=== PATIENT | male | born 1935 | race Caucasian/White ===

== ENCOUNTER 2016-08-22 15:11 | Inpatient (IN) | payer MEDICARE, OTHER ==
[~2016-08-22] VITALS: Ht 175.3 cm; Wt 87.2 kg
[~2016-08-22 15:11] MED LIST: ALENDRONATE SOD70 MG PO; ANORO ELLIPTA 62.1 - IH; ANTIVERT-DPS25 MG PO; ASA CHILDREN'S81 MG PO; ASPIR 8181 MG PO; ATROVENT SOLN.2.5 ML IH; BACTRIM DS DPS1 TAB PO; BENTYL-DPS10 MG PO; BREO ELLIP1 PUFF/DOS IH; CALCIUM 600 +1 EA14 PO; CALTRATE-600 D600 MG PO; CALTRATE-600 W600 MG PO; COLACE-DPS100 MG PO; DELTASONE DPS10 MG PO; DELTASONE DPS20 MG PO; DOC-Q-LACE100 MG PO; DOCUSATE SODIU100 MG PO; DULCOLAX-DPS10 MG PR; FLOMAX DPS0.4 MG PO; LEVAQUIN DPS750 MG PO; LEVOFLOXACIN500 MG PO; LIPITOR DPS20 MG PO; LOPRESSOR DPS50 MG PO; LOVENOX DP40 MG/0.4 SQ; MAALOX DPS30 ML PO; MAPAP PM (TYLEN1 TAB PO; MIRALAX PACKET17 GM PO; MUCINEX600 MG PO; NATURAL BALANCE15 M1 OU; NITROSTAT0.4 MG SL; PEPCID DPS20 MG PO; PROTONIX40 MG PO; PULMICORT0.5 MG/21 IH; SLO-BID DPS300 MG PO; SURFAK DPS240 MG PO; THEO-24300 MG PO; THERAPEUTIC MUL1 TAB PO; TYLENOL DPS325 MG PO; VITAMIN D35000 UNIT PO; VITAMIN D50000 UNIT PO; XANAX DPS0.25 MG PO; XANAX DPS0.5 MG PO; XOPENEX CO1.25 MG/0. IH; XOPENEX1.25 MG/3 IH; ZITHROMAX250 MG PO; ZOLOFT DPS50 MG PO; ZYLOPRIM-DPS300 MG PO
--- NOTE | 2016-08-27 10:46 | HP ---
ADMIT: 08/22/2016 RM/LOC: 409 [facility] MR#: [id number] [address] [address] [address] VINCENT [address] [place] [address] History and Physical SEX: M AGE: 81 : 1935 DATE OF SERVICE: CHIEF COMPLAINT: Shortness of breath and palpitations. HISTORY OF PRESENT ILLNESS: This is an 81-year-old male, patient of Dr. 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 The patient was recently admitted July 17 through the at [facility] for sepsis due to right lower lobe pneumonia. He was in the ICU on pressors for a day. At that time, he was treated with Zosyn and azithromycin. His sputum cultures returned normal antony. He was discharged on the after recovering well and was sent to the [facility]. He was recently discharged from the long-term 2 days ago. According to the patient, today, he had 2 healthcare workers, who came out to his house to check on him and found him to be tachycardic and he was also complaining of shortness of breath. At that time, he states that he was not complaining of palpitations and never felt his heart racing today. He was then sent to the ER because of this physical findings and a chest x-ray revealed a right lower lobe pneumonia. There was some concern for a PE and so a CTA was done that was negative for pulmonary embolism, but then revealed bilateral lower lobe infiltrates. He was saturating normally on 2 L of oxygen and he normally wears 3 L at home chronically. His white count came back normal, but his lactic acid was elevated to 2.8. He was given a 1 L normal saline bolus and was started on Levaquin. His EKG showed sinus tachycardia with a rate of 116. The patient does admit that he has been very weak and short of breath since his last admission. He did have a poor appetite and some weight loss when he was admitted back in July, but states that his appetite has been great lately. He denies any upper respiratory infection symptoms, but he does complain of a cough that is occasionally productive of yellow phlegm. He has not noticed any blood in his sputum. He denies any abdominal pain, nausea, or vomiting. He does state that he has had a few loose stools in the last several days. Of note, the emergency room also checked a theophylline level since he takes theophylline regularly and noted that it was elevated to 21. PAST MEDICAL HISTORY: 1. End-stage COPD with chronic hypoxic respiratory failure. He is on 3 L of oxygen at baseline. 2. Coronary artery disease. Last had an echocardiogram in July of 2016 that showed an ejection fraction of 65%. 3. Hypertension. 4. Hyperlipidemia. 5. Multifocal atrial tachycardia. 6. History of prostate cancer. 7. BPH with urinary retention. 8. Anxiety. MEDICATIONS: ADMIT: 08/22/2016 RM/LOC: 409 [facility] MR#: [id number] [address] [place] [id number] [address]INCENT [address] [place] [address] History and Physical SEX: M AGE: 81 : 1935 1. Alprazolam 0.5 mg every 8 hours as needed. 2. Aspirin 81 mg daily. 3. Anoro Ellipta 62.5/25 mcg one puff every morning. 4. Atrovent 17 mcg one puff 4 times daily. 5. Caltrate plus vitamin D twice daily. 6. Docusate sodium 100 mg b.i.d. as needed. 7. Atorvastatin 20 mg at bedtime. 8. Mucinex ER 600 mg twice daily. 9. Natural balance eyedrops daily in both eyes. 10.Pantoprazole 40 mg twice daily. 11.Prednisone 10 mg daily. 12.Theophylline ER 300 mg daily. 13.Multivitamin daily. 14.Acetaminophen 500 mg one to two tabs every 4 hours as needed. 15.Vitamin D 50,000 units every Thursday. 16.Xopenex 1.25 mg/0.5 mL, one vial four times daily as needed. 17.Tamsulosin 0.4 mg at bedtime. 18.Donepezil 10 mg at bedtime. 19.Budesonide 0.5 mg/2 mL, one vial twice daily. ALLERGIES: DARVOCET. SOCIAL HISTORY: He does have a [id number] history of smoking. He quit about 10 years ago. He also has a history of alcohol use, but has not drank any alcohol for the last 10 years. He denies any illegal drugs. Again, he was living at home with his for the last 2 days after being discharged from the [facility] for rehab. FAMILY HISTORY: Noncontributory. REVIEW OF SYSTEMS: A 10-point review of systems was reviewed and negative other than that stated above in the HPI. PHYSICAL EXAMINATION: VITAL SIGNS: Blood pressure 114/69, pulse 93, respirations 20, temp 96.9, saturating 99% on 2 L. GENERAL: He is alert and oriented to person and place. He is unable to give me the date, but knows that it is year 2016. HEART: Tachycardic, but regular rhythm. LUNGS: Diminished throughout. ABDOMEN: Soft, nontender, nondistended with positive bowel sounds. EXTREMITIES: No edema. LABORATORY DATA AND IMAGING: Sodium 139, potassium 4.7, creatinine 1.3, glucose 194. White count 7.8, hemoglobin 11.9, platelets 164. Cardiac enzymes were negative. Procalcitonin was negative. Lactic acid 2.8, theophylline level was 21. Chest x-ray showed severe COPD and a right lower lobe infiltrate. CTA of the chest was negative for PE, but showed bilateral lower lobe infiltrates. ADMIT: 08/22/2016 RM/LOC: 409 [facility] MR#: [id number] [address] [address] [address] [place] [address] History and Physical SEX: M AGE: 81 : 1935 ASSESSMENT AND PLAN: 1. Bilateral lower lobe pneumonia. We started him on Levaquin and Zosyn. We will also give him Xopenex and Atrovent q.i.d. scheduled. I ordered a pulmonary toilet as well as IV Solu-Medrol. I ordered a respiratory viral panel. 2. End-stage chronic obstructive pulmonary disease with acute exacerbation. We would like Pulmonology to see him due to his severe chronic obstructive pulmonary disease and see if there is anything else that we could be doing for him as he is here in the hospital. 3. Elevated theophylline level. We are going to plan to hold his theophylline tonight and we will repeat a level in the morning. 4. Weakness. PT/OT will see him. He will likely need to go to rehab again after being discharged from the hospital. 5. Multifocal atrial tachycardia. 6. History of coronary artery disease. 7. Hypertension. 8. Hyperlipidemia. 9. Benign prostatic hyperplasia. 10.Anxiety. Nadine Olivier DO Resident / Dangelo Soto MD / modl JOB #: [id number] CC: Dangelo Soto, Attending Physician Dangelo Soto, Family Physician
[2016-08-28] MEDS ORDERED: PROTONIX40 MG PO (13:27)
[2016-08-28] MEDS ORDERED: ACETAMINOPHEN325 MG PO (13:28)
[2016-08-28] MEDS ORDERED: ARICEPT DPS5 MG PO (13:29)
[2016-08-28] MEDS ORDERED: FLOMAX DPS0.4 MG PO (13:29)
[2016-08-28] MEDS ORDERED: SURFAK DPS240 MG PO (13:30)
[2016-08-28] MEDS ORDERED: PHOS NAK PO (13:30)
[2016-08-28] MEDS ORDERED: MAALOX DPS30 ML PO (13:30)
--- NOTE | 2016-08-28 21:02 | DS ---
ADMIT: 08/22/2016 RM/LOC: 409 [facility] MR#: [id number] [address] [address] [address] [place] [address] Discharge Summary SEX: M AGE: 81 : 1935 ADMISSION DATE: 08/22/2016 DISCHARGE DATE: 08/27/2016 FINAL DIAGNOSES: 1. Bilateral lower lobe pneumonia. 2. Chronic obstructive pulmonary disease with chronic respiratory failure. 3. Chronic debilitation. 4. Chronic hypertension. 5. Coronary artery disease. 6. Hyperlipidemia. 7. History of prostate cancer. 8. Benign prostatic hypertrophy with chronic urinary retention. 9. Chronic anxiety. HOSPITAL COURSE: This gentleman was admitted on 08/22/2016 with increasing shortness of breath and weakness. He had only been home for two days after leaving a rehabilitation facility. Prior to that, he was in the hospital in ICU for pneumonia. In any case, on admission, he was short of breath. X-ray showed probable basilar pneumonia on the right side. He had a CT scan to rule out pulmonary emboli and that actually showed bilateral lower lobe pneumonia and no emboli. He has severe COPD findings. He was admitted, started on IV Solu-Medrol, Zosyn, and Levaquin. Over the course of the next several days, he had gradual improvement. He was weak and initially required assistance. Over the last 48 hours, he has been able to get up and complete most of his own cares, but he uses his walker for balance. He is stable today with no new complaints. He is on his baseline oxygen of 3 L per nasal cannula. The patient's x-ray has cleared for the most part. We did not repeat a CT scan. He will be dismissed home and have Home Health Care and then follow up soon with his own physician. Patient's primary doctor is Dr. Franky Steele. He was admitted by [facility] for hospital care for this stay. On dismissal, medications are: 1. Aricept 10 mg at bedtime. 2. Aspirin 81 mg daily. 3. Caltrate D 600 mg b.i.d. 4. Flomax 0.4 mg at bedtime. 5. Levaquin 500 mg p.o. daily through 08/28/2016. 6. Lipitor 20 mg at bedtime. 7. Mucinex 600 mg b.i.d. 8. Protonix 40 mg b.i.d. 9. Theophylline 300 mg daily. 10.Therapeutic multivitamin daily. 11.Vitamin D 50,000 units once a week. 12.Anoro inhaler one inhalation daily. 13.He has a tapering dose of prednisone. On 08/26, he will have 40 mg, on ADMIT: 08/22/2016 RM/LOC: 409 [facility] MR#: [id number] [address] [address] [address] [place] [address] Discharge Summary SEX: M AGE: 81 : 1935 08/27 he will have 40 mg, on 08/28 and 08/29, he will take 30 mg, on 08/30 and 08/31, he will take 20 mg, on 09/01 and 09/02, he will take 10 mg, on 09/03 and 09/04, he will take 5 mg daily, and then stop. 14.He also uses Pulmicort via nebulizer b.i.d. 15.Atrovent nebulized q.i.d. along with Xopenex nebulized q.i.d. 16.He also has alprazolam 0.5 mg q.8 hours p.r.n. anxiety. 17.Tylenol 500 mg take one or two tabs every 6 hours p.r.n. pain. 18.He can use Maalox 30 mL p.r.n. indigestion. He will continue his 02 at 3 L per nasal cannula. He did have a trend ox here overnight, which showed he required that to continue. He will follow up with Dr. Steele as planned. Zara Ramon MD/ josh JOB #: [id number] CC: Dangelo Soto MD, Attending Physician Dangelo Soto MD, Family Physician
--- NOTE | 2016-08-30 08:11 | ER ---
ADMIT: 08/22/2016 RM/LOC: [facility] MR#: [id number] [address] [address] [address] [place] [address] Emergency Room Report SEX: M AGE: 81 : 1935 DATE: 08/22/2016 ADDENDUM: CHIEF COMPLAINT: Rapid heart rate and shortness of breath. HISTORY OF PRESENT ILLNESS: This is an 81-year-old, who was recently admitted in the hospital what sounds like for COPD and sepsis pneumonia. He was discharged and went to [facility] for rehab. He just went home 2 days ago. Today, he was just at home, he felt like his heart was palpating, felt more short of breath, so brought him into the emergency room. PAST MEDICAL HISTORY: End-stage COPD, hypertension, hyperlipidemia, coronary artery disease, multifocal atrial tachycardia, prostate cancer, BPH with urinary retention, and anxiety. MEDICATIONS: Please see nurse's note. ALLERGIES: NO KNOWN ALLERGIES. SOCIAL HISTORY: Denies any tobacco use or alcohol. FAMILY HISTORY: Noncontributory. Please see T-sheet for physical exam and review of systems. COURSE IN THE EMERGENCY ROOM: CBC, BMP, troponin, CK, CK-MB, theophylline level, TSH, chest x-ray, and EKG were done. Overall findings, chest x-ray was unclear if there is a right-sided infiltrate. CTA of his chest showed bilateral infiltrates. LABORATORY DATA: CBC was normal except for hemoglobin of 11.9. CMP normal ADMIT: 08/22/2016 RM/LOC: [facility] MR#: [id number] [address] [address] [address] [place] [address] Emergency Room Report SEX: M AGE: 81 : 1935 except for glucose of 194, GFR is 51, relative index is elevated at 6.1. Theophylline was 21.5, otherwise CMP and TSH were normal. EKG showed sinus tach with some PACs over-read by Dr. Barros. After labs and CTA were obtained, blood cultures x2, lactic acid and procalcitonin have been ordered. Levaquin 750 mg IV was ordered. I did call Dr. Soto at 1745 hours. He will admit the patient. CLINICAL IMPRESSION: 1. Bilateral pneumonia. 2. Chronic obstructive pulmonary disease. DISPOSITION: Stable at admit. DARREN Lan / Wild Barros MD / modl JOB #: [id number] CC: Wild Barros MD, Attending Physician UNKNOWN, Family Physician
--- NOTE | 2016-09-12 08:44 | CO ---
ADMIT: 08/22/2016 RM/LOC: 409 [facility] MR#: [id number] 26[address] [facility] [address] [place], [place] [address] MAL DOMINGUEZ [address] [place] [address] Consultation SEX: M AGE: 81 : 1935 DATE OF CONSULTATION: 08/23/2016 ATTENDING PHYSICIAN: Dangelo Soto CONSULTING PHYSICIAN: Nghia Myers MD REASON FOR CONSULTATION: Hypoxemia, pneumonia, chronic obstructive pulmonary disease exacerbation. HISTORY OF PRESENT ILLNESS: Mr. Dominguez is a pleasant 81-year-old gentleman, who has a history of COPD, who was recently admitted with an influenza according to the patient and pneumonia in the right lower lobe, 07/17 through 07/21. He was in the ICU and on pressor treatment at that time. He has developed increasing cough, wheezing, and shortness of breath, and increasing hypoxemia. Yesterday, he was found to have tachycardia and dyspnea and was sent to the emergency room. Subsequent CT angiogram of the chest was negative for pulmonary embolism, bilateral interstitial lower lobe infiltrates. Procalcitonin level is less than 0.05. Basic metabolic panel showed a normal kidney function. White blood cell count was 7000, hemoglobin 10.7, today. Lactic acid was 2.8 on admission. Blood cultures are pending. Chest x-ray performed today has mild improvement in the lower lobes. PAST MEDICAL HISTORY: Reviewed, includes the followin. End-stage COPD. 2. Chronic hypoxemia. 3. Coronary artery disease. 4. Hypertension. 5. Hyperlipidemia. 6. Prostate cancer, by history. 7. BPH. 8. Anxiety. MEDICATIONS: From home were: 1. Xanax. 2. Anoro Ellipta. 3. Caltrate. 4. Atorvastatin. 5. Mucinex. 6. Pantoprazole. 7. Prednisone. 8. Theophylline. 9. Xopenex. 10.Tamsulosin. 11.Donepezil. 12.Budesonide. ALLERGIES: DARVOCET. SOCIAL HISTORY: Former smoker, quit 10 years ago, 60 pack years. Former ADMIT: 08/22/2016 RM/LOC: 409 [facility] MR#: [id number] [address] [address] MAL [address] [place] [address] Consultation SEX: M AGE: 81 : 1935 bhat. FAMILY HISTORY: Reviewed and noncontributory. REVIEW OF SYSTEMS: Ten-point reviewed and noncontributory except the HPI. PHYSICAL EXAMINATION: VITAL SIGNS: Temp 97, pulse 80, respirations 12, blood pressure 130/70. HEENT: Within normal limits. Neck: No JVD or bruits. HEART: Regular rate. LUNGS: Rhonchi and rales with some wheezing. ABDOMEN: Soft. Bowel sounds positive. Nontender and nondistended. No organosplenomegaly. EXTREMITIES: No cyanosis, clubbing, edema GENITORECTAL: Deferred. LABORATORY DATA: Testing, as reviewed in the HPI. IMPRESSION: 1. Right lower lobe pneumonia-question of possible aspiration. Question of post influenza, the patient states he had influenza, I cannot find that anywhere in his documentation. He is improving overnight with intravenous steroids and antibiotics continued. 2. Chronic obstructive pulmonary disease exacerbation secondary to right lower lobe pneumonia. 3. Chronic hypoxemia, stable. Thank you for having me see him. We will cut down his steroids today and follow along with you. Nghia Myers MD/ doug JOB #: [id number] CC: Dangelo Soto, Attending Physician Dangelo Soto, Family Physician
[2016-10-15] MEDS ORDERED: FLOMAX DPS0.4 MG PO (18:53)
[2016-10-15] MEDS ORDERED: ARICEPT DPS5 MG PO (18:53)
[2016-10-15] MEDS ORDERED: LEVAQUIN DPS500 MG PO (18:53)
[2016-10-15] MEDS ORDERED: PHOS NAK PO (18:54)
[2016-10-15] MEDS ORDERED: SENOKOT DPS8.6 MG PO (18:54)
[2016-10-15] MEDS ORDERED: THEO-24300 MG PO (18:54)
[2016-10-15] MEDS ORDERED: MUCINEX600 MG PO (18:54)
[2016-10-15] MEDS ORDERED: XANAX DPS0.5 MG PO (18:54)
[2016-10-15] MEDS ORDERED: BROVANA15 MCG/2 M IH (18:55)
[2016-10-15] MEDS ORDERED: ZYLOPRIM-DPS300 MG PO (18:55)
[2016-10-15] MEDS ORDERED: ZOLOFT DPS50 MG PO (18:55)
[2016-10-15] MEDS ORDERED: DUONEB DPS3 ML IH (18:55)
[2016-10-15] MEDS ORDERED: TEARS NATURAL D15 ML OU (18:56)
[2016-10-15] MEDS ORDERED: SPIRIVA18 MCG IH (18:56)
[2016-10-15] MEDS ORDERED: PULMICORT0.5 MG/2 M IH (18:56)
[2016-10-15] MEDS ORDERED: NORMAL SALINE FL5 ML IV (18:57)
[2016-10-15] MEDS ORDERED: ROXANOL 20MG20 MG/ML PO (18:58)
[2016-10-15] MEDS ORDERED: SENOKOT S1 TAB PO (19:13)
[2016-10-15] MEDS ORDERED: TYLENOL DPS325 MG PO (19:14)
[2016-10-15] MEDS ORDERED: ZOFRAN4 MG PO (19:14)
[2016-10-15] MEDS ORDERED: DULCOLAX-DPS10 MG PR (19:16)
[2016-10-15] MEDS ORDERED: PROVENTIL2.5 MG/3 M IH (19:16)
[2016-10-15] MEDS ORDERED: TYLENOL-DPS650 MG PR (19:17)
[2016-10-15] MEDS ORDERED: ISOPTO CARPINE SL (19:18)
[2016-10-15] MEDS ORDERED: LORAZEPAM I2 MG/1 ML SL (19:19)
[2016-10-15] MEDS ORDERED: ZOFRAN4 M1 PO (19:20)
== END 2016-08-27 12:46 | disposition home health service (06) | DRG 190 ==
LOC: ER 15:11 → 4PCU 18:35
PROVIDERS: ADMIT Family Medicine
DX: J44.0 Chronic obstructive pulmonary disease with (acute) lower respiratory infection (principal); J18.9 Pneumonia, unspecified organism; J96.11 Chronic respiratory failure with hypoxia; Z99.81 Dependence on supplemental oxygen; I47.1 Supraventricular tachycardia; J44.1 Chronic obstructive pulmonary disease with (acute) exacerbation; I10 Essential (primary) hypertension; E78.5 Hyperlipidemia, unspecified; I25.10 Atherosclerotic heart disease of native coronary artery without angina pectoris; N40.1 Benign prostatic hyperplasia with lower urinary tract symptoms; R33.8 Other retention of urine; F41.9 Anxiety disorder, unspecified; Z79.82 Long term (current) use of aspirin; Z79.52 Long term (current) use of systemic steroids; Z87.891 Personal history of nicotine dependence; Z85.46 Personal history of malignant neoplasm of prostate

== ENCOUNTER 2016-10-07 07:40 | Inpatient (IN) | payer MEDICARE, OTHER ==
[~2016-10-07] VITALS: Ht 175.3 cm; Wt 66.2 kg
[~2016-10-07 07:40] MED LIST changes: +ACETAMINOPHEN325 MG PO; +ARICEPT DPS5 MG PO; +PHOS NAK PO
--- NOTE | 2016-10-10 15:16 | CO ---
ADMIT: 10/07/2016 RM/LOC: 414 [facility] MR#: [id number] 2620 [facility] [address] [place], [place] [address] RAMIRO DOMINGUEZ [address] [place] [address] Consultation SEX: M AGE: 81 : 1935 DATE OF CONSULTATION: 10/09/2016 ATTENDING PHYSICIAN: Edgardo Mendoza CONSULTING PHYSICIAN: Ermelinda Bailey APRN TIME IN: 0855 hours. TIME OUT: 0935 hours. REASON FOR CONSULTATION: Supportive care consultation was requested by Dr. Mendoza for discussion of goals for care and code status. HISTORY OF PRESENT ILLNESS: Mr. Dominguez is an 81-year-old male with history of mild dementia as well as end-stage COPD. He has been hospitalized frequently over the course of the past two years for COPD exacerbation and pneumonia. He was unfortunately readmitted again on October 07 with COPD exacerbation and pneumonia. It is of note that he also has a history of dysphagia when looking through the chart, and has been followed by Speech therapy in the past during his hospital stays. His confirms this as well. He is a full code at the time of assessment. Therefore, supportive care consultation was requested to discuss goals for care and code status. In terms of advanced directives, he does have a POLST form that was completed on May 09, 2015. We do have this on file. In terms of medical decision making, the patient's , Tamiko whose phone #[phone] and [phone] is the patient's next of kin medical decision maker. As mentioned, he is a full code. Symptomatically, the patient is complaining of dyspnea. He has audible wet, rattling sounds at the back of his throat after eating breakfast. He is mildly confused related to dementia. He is weak and debilitated. PAST MEDICAL HISTORY: End-stage COPD, history of pulmonary nodule, history of prostate cancer, GERD, dementia, hyperlipidemia, hypertension, coronary artery disease, multifocal atrial tachycardia, BPH with urinary retention, anxiety, depression, gout, and GERD. ALLERGIES: THE PATIENT IS ALLERGIC TO DARVOCET. CURRENT MEDICATIONS: Please see the patient's MAR for specific routes and dosages. His current medications are as follows: 1. Vitamin D. 2. Natural Tears. 3. Multivitamin. 4. Aspirin. 5. Zyloprim. 6. Caltrate with D. 7. Mucinex. ADMIT: 10/07/2016 RM/LOC: 414 [facility] MR#: [id number] [address] [address] RAMIRO DOMINGUEZ [address] [place] [address] Consultation SEX: M AGE: 81 : 1935 8. Aricept. 9. Flomax. 10.Protonix. 11.Lipitor. 12.Phosphorus. 13.Xanax. 14.Theophylline. 15.Zoloft. 16.Colace. 17.Antivert. 18.Pulmicort. 19.Brovana. 20.Spiriva. 21.Solu-Medrol. 22.DuoNeb. 23.Zosyn. 24.Nitro drip. 25.Colace. 26.Maalox. 27.Tylenol. 28.Nitrostat. SOCIAL HISTORY: The patient is . He was living at home with his and also had a home health care person who was coming into assist with cares. He does have a history of smoking and quit about 10 years ago. He also has a history of alcohol use, but has not drink in the past 10 years or so. He does not use illicit drugs. FAMILY HISTORY: Reviewed and noncontributory. Functional review prior to his stay, he was living at home. He could ambulate with a walker. He was needing some assistance with ADLs. His intake was slightly reduced. He did have mild confusion secondary to dementia. His palliative performance scale prior to admission was around 60%. Currently, he is mostly sitting in bed or lying down. He is requiring considerable assistance with ADLs. Intake is reduced. He is very fatigued. His current palliative performance score is 50%. REVIEW OF SYSTEMS: A 10-point review of systems was completed and other than those pertinent positives and negatives mentioned in the HPI, it is negative. PHYSICAL EXAMINATION: GENERAL: The patient is examined in the bed. He is in mild distress secondary to feeling shortness of breath. He states that this common for him. VITAL SIGNS: Temperature 96.4, pulse 72, respirations 16, blood pressure 113/56, oxygen 96% on 3 L per nasal cannula. HEENT. Head is normocephalic. Pupils are 3 mm bilaterally and brisk. He wears glasses. Oral mucosa pink and moist with fair dentition. He does have ADMIT: 10/07/2016 RM/LOC: 414 [facility] MR#: [id number] [address] [address] RAMIRO DOMINGUEZ [address] [place] [address] Consultation SEX: M AGE: 81 : 1935 a large amount of saliva and sputum, which has pulled at the back of his throat. NECK: Supple. RESPIRATORY: Respirations are slightly labored. LUNGS: Coarse bilaterally. He is coughing up yellow sputum. CARDIOVASCULAR: Rate and rhythm regular without murmurs, rubs, or gallops. No edema noted. GASTROINTESTINAL: Soft and nontender. Bowel sounds are positive. MUSCULOSKELETAL: Generalized weakness. No obvious joint deformities. INTEGUMENTARY: Skin turgor is fair. No rashes or wounds noted. NEUROLOGIC: Oriented x3 but forgetful on details. He has a hard time at points in the conversation with following what I am talking about even after simplification. He is very tired during our discussion. PSYCHIATRIC: Calm and cooperative. No agitation noted. Mild dementia noted. DIAGNOSTIC DATA: Sodium 144, potassium 3.6, BUN 21, creatinine 1.1, total protein 5.3, albumin 2.6. WBCs 10.4, hemoglobin 10.0, hematocrit 32.4, and platelets are 142. IMPRESSION: 1. Debility. 2. Dementia. 3. Fatigue. 4. Dyspnea. 5. Moderate protein-calorie malnutrition. 6. Malaise. 7. End-stage chronic obstructive pulmonary disease. 8. History dysphagia. 9. History of anxiety. 10.Palliative care. 11.The patient is a full code at the initial time of my assessment. However, he does transition to a do not resuscitate/do not intubate status by the end of my consultation. PLAN: 1. I did attempt to talk with the patient at [facility] regarding goals for the time ahead. He does have mild memory issues related to his dementia. He does recognize that he has been declining and states that he is getting tired of being sick in the hospital. He does agree to rehab here in the time ahead but does understand that he will likely continue to decline related to his disease process. I was able to call the patient's , and she states that he has been declining as well. We did review the chronic and progressive nature of COPD and the fact that he is in the end stages of the disease and is likely nearing the end of his life. I did review the hospice philosophy with the patient's . At this time, she states that they are not quite ready to commit to full hospice care. However, she knows that this is an option in the time ahead as he will continue to likely decline. It is of note that there are complicated ADMIT: 10/07/2016 RM/LOC: 414 [facility] MR#: [id number] [facility] [address] [address] RAMIRO DOMINGUEZ [address] [place] [address] Consultation SEX: M AGE: 81 : 1935 psychosocial things going on with Ramiro and his family currently. The patient's states that their son is also struggling with a very serious illness and that she has a lot on her plate right now regarding that and the fact that she is still working. She is appreciative of the supportive care consultation and agrees to ongoing discussions pending his status in the time ahead. At this time, she is open to hospice care here in the time ahead when the goal is comfort. As mentioned, she will continue ongoing discussions with us in the time ahead. 2. I did review code status with the patient 1st at the bedside, and he does state that he would not want to go through machines, however, he does seem a little confused with his understanding of what a do not resuscitate/do not intubate status means. I did contact the patient's and reviewed the burden versus benefit of a full code status versus do not resuscitate/do not intubate and the patient's is very clear that he is to be a do not resuscitate/do not intubate status. I did review his records and it looks like when he was hospitalized here back in July, he was a do not resuscitate/do not intubate status at that time as well. Pending his status here in the time ahead, I will assist the patient and his with completion of a new POLST form reflecting his wishes as his prior POLST form reflects a full code. 3. In terms of the patient's dyspnea, he is having audible rattling and wet sounds at the back of his throat after eating breakfast. I did discuss this with the patient's , and she states that he has had swallowing issues in the past and it looks like, Speech therapy followed him during his last stay. I do have a call out to Dr. Mendoza to update him on the patient's status including my concern for aspiration with his history of dysphagia. I will also update him on the patient's code status. 4. We will continue to follow along in the care of this kind patient. We would like to thank Dr. Mendoza for the invitation to participate in this patient's care. Total consultation time was 40 minutes from [id number] with 22 minutes from [id number] spent [id number] with the patient or on the phone with his discussing goals for care and providing counseling and support. We will continue to follow. Ermelinda Bailey APRN/ doug JOB #: [id number] CC: Edgardo Mendoza, Attending Physician Edgardo Mendoza, Family Physician
--- NOTE | 2016-10-12 08:27 | HP ---
ADMIT: 10/07/2016 RM/LOC: 414 [facility] MR#: [id number] 2620 [facility] [address] [place], [place] [address] [facility] VINCENT [address] [place] [address] History and Physical SEX: M AGE: 81 : 1935 DATE OF SERVICE: CHIEF COMPLAINT: Shortness of breath, fever, and cough. HISTORY OF PRESENT ILLNESS: The patient is an 81-year-old, white male, who is normally a patient of Dr. Steele at the [facility]. He has had 2 to 3 days of increased cough, shortness of breath, and fever. He does have a medical history significant for end-stage COPD with chronic hypoxia and use of home oxygen. Has also had recurrent bouts of respiratory failure secondary to his COPD and pneumonia. He has had recent hospitalizations for pneumonia and COPD exacerbations. In addition to his lung problems, he has had a history of coronary artery disease, hypertension, hyperlipidemia, multifocal atrial tachycardia, and history of prostate cancer. Last admission to the hospital was in August 2016 for pneumonia and COPD exacerbation. His states over the past few days, he has become a little weaker with increased shortness of breath, cough, and fever. Evaluation through the emergency room today showed a right lower lobe pneumonia, and the patient is admitted for this pneumonia and COPD exacerbation. PAST MEDICAL HISTORY: 1. 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 He uses 3 L of oxygen at baseline. 2. Coronary artery disease. Last echocardiogram in July 2016 with an ejection fraction of 65%. 3. Hypertension. 4. Hyperlipidemia. 5. Multifocal atrial tachycardia. 6. History of prostate cancer. 7. History of BPH with urinary retention. 8. Anxiety. 9. Depression. 10.Gout. 11.Dementia. 12.Acid reflux. MEDICATIONS: Current home med list includes: 1. Breo-Ellipta inhaler one puff daily. 2. Xopenex breathing treatments 4 times daily. 3. Budesonide nebulized treatments twice daily. 4. Atorvastatin 20 mg daily. 5. Pantoprazole 40 mg b.i.d. 6. Sertraline 50 mg daily. 7. Theophylline CR 300 mg daily. 8. Allopurinol 150 mg daily. 9. Alprazolam 0.5 mg three times daily. 10.Tamsulosin 0.4 mg daily. 11.Donepezil 10 mg daily. 12.Phosphorus powder pack daily. 13.Mucinex 600 mg every 12 hours. ADMIT: 10/07/2016 RM/LOC: 414 [facility] MR#: [id number] [address] [address] MAL VINCENT [address] [place] [address] History and Physical SEX: M AGE: 81 : 1935 14.Calcium plus vitamin D twice daily. 15.Aspirin 81 mg daily. 16.Multivitamin once daily. 17.Refresh tears for dry eyes daily. 18.Meclizine 25 mg every 6 hours as needed. 19.Vitamin D 50,000 units once weekly. 20.Doc-Q-Lace 100 mg twice daily as needed. ALLERGIES: DARVOCET. SOCIAL HISTORY: The patient has a [id number] history of smoking. He states that he quit about 10 years ago. Also, has a prior history of alcohol use, but has not had alcohol use over the past 10 years or so. No illicit drug use. He has been living at home with his . Had recently been in the [facility] for rehab following a previous hospitalization. FAMILY HISTORY: Noncontributory. REVIEW OF SYSTEMS: A 10-point review of systems was reviewed and negative other than those stated above in the HPI. PHYSICAL EXAMINATION: VITAL SIGNS: Most recent vitals include a temperature of 96.7, pulse 62 and regular, respiratory rate 20 and nonlabored, blood pressure 97/49, O2 saturations 97% on 3 L per nasal cannula. GENERAL: The patient is alert and oriented. He does not appear to be in acute distress. He is alert and oriented to person and place. HEENT: Ears are clear bilaterally. Oropharynx is moist without erythema or tonsillar enlargement. NECK: Supple without lymphadenopathy or JVD. No thyroid enlargement or tenderness. LUNGS: With diminished breath sounds bilaterally and expiratory wheezes bilaterally. HEART: Regular rate and rhythm without murmur. ABDOMEN: Soft, nontender, and nondistended. Good bowel sounds throughout. No masses. EXTREMITIES: No clubbing, cyanosis, or edema. NEUROLOGIC: Alert and oriented at the present time. LABORATORY AND X-RAY DATA: Admission labs included an ABG with a pH of 7.444, pCO2 of 40.7, PO2 of 63.0. Blood cultures drawn and pending. Admission white blood cell count 10.4, hemoglobin 13.8, platelet count 166. Lactic acid normal at 1.9. Procalcitonin normal at 0.10. INR less than 1.00. Chest x- ray showed right lower lobe pneumonia. Admission sodium 138, potassium 3.8, BUN 22, creatinine 1.3, glucose 123, phosphorus 3.1, magnesium 1.8, alkaline phosphatase 83, AST 31, ALT 31, creatine kinase 94, MB 2.2, relative index 2.3, troponin I 0.017. Theophylline is a little low at 6.4. ASSESSMENT: ADMIT: 10/07/2016 RM/LOC: 414 [facility] MR#: [id number] [facility] [address] [address] MAL VINCENT [address] [place] [address] History and Physical SEX: M AGE: 81 : 1935 1. Right lower lobe pneumonia. 2. Chronic obstructive pulmonary disease exacerbation. 3. End-stage chronic obstructive pulmonary disease. 4. Hypoxia (chronically on home O2). 5. Sepsis-based on low blood pressure, pneumonia, and fever. 6. Hypotension. 7. Weakness. PLAN: The patient has been admitted to PCU status and is on IV Zosyn, IV Solu- Medrol, DuoNeb breathing treatments, and oxygen. He currently appears very stable. He is given generous IV fluids for his low blood pressure. states that his blood pressure normally runs a little on the low side. We will consult PT and OT for strengthening and consult Social Work to look into possible placement needs. We will check cultures including blood, urine, and sputum. Supportive care consult will be ordered as well to discuss his code status and further care plans for the future. Again, this is normally a patient of Dr. Colin Steele at the [facility], and I am seeing him and admitting him as a [facility] patient. Edgardo Mendoza MD/ doug JOB #: [id number] CC: Edgardo Mendoza, Attending Physician Edgardo Mendoza, Family Physician
--- NOTE | 2016-10-12 09:52 | CO ---
ADMIT: 10/07/2016 RM/LOC: 414 [facility] MR#: [id number] [address] [address] RAMIRO DOMINGUEZ [address] [place] [address] Consultation SEX: M AGE: 81 : 1935 DATE OF CONSULTATION: 10/09/2016 ATTENDING PHYSICIAN: Edgardo Mendoza CONSULTING PHYSICIAN: Edgardo Cleveland MD REASON FOR CONSULTATION: COPD. HISTORY OF PRESENT ILLNESS: Ramiro Dominguez is a very pleasant 81-year-old male with history of end-stage COPD. He is chronically hypoxemic and uses home oxygen. He has also had several bouts of pneumonia and respiratory failure in the last several months. He was admitted on 10/07/2016 for increased shortness of breath and cough. Chest x-ray shows bilateral lower lobe infiltrates along with lot of scarring and fibrosis. He has been placed on Zosyn and Levaquin. He is struggling to get better at this point. Sputum is growing normal antony. He is not particularly hypercapnic on his arterial blood gas. Per nursing, he did aspirate on some of his breakfast today. He is extremely gurgly and having difficulty clearing his secretions. PAST MEDICAL HISTORY: COPD, history of coronary artery disease, hypertension, history of prostate cancer, anxiety, and history dementia. ALLERGIES: DARVOCET. SOCIAL HISTORY: He is a 17-yiju-ydne tobacco history. He did quit about 10 years ago according to the chart. FAMILY HISTORY: Negative for pulmonary or sleep disorders. CURRENT MEDICATIONS: 1. Levaquin. 2. Lasix. 3. Aspirin. 4. Zyloprim. 5. Mucinex. 6. Aricept. 7. Flomax. 8. Protonix. 9. Lipitor. 10.Xanax. 11.Theophylline. 12.Zoloft. 13.Colace. 14.Antivert. 15.Pulmicort. 16.Brovana. 17.Spiriva. 18.Solu-Medrol. 19.DuoNeb. ADMIT: 10/07/2016 RM/LOC: 414 [facility] MR#: [id number] [address] [address] RAMIRO DOMINGUEZ [address] [place] [address] Consultation SEX: M AGE: 81 : 1935 REVIEW OF SYSTEMS: Full review of systems is done with the patient. Negative unless mentioned. PHYSICAL EXAMINATION: VITAL SIGNS: Blood pressure 144/64, heart rate 112, respiratory rate 24, he is afebrile. GENERAL: The patient is awake, alert, and in no acute distress. HEENT: Pupils are reactive. NECK: Supple. HEART: Regular rate and rhythm. LUNGS: Coarse throughout. ABDOMEN: Soft. EXTREMITIES: Trace edema. SKIN: Notable for scattered bruising. MUSCULOSKELETAL: Deferred. NEUROLOGIC: Nonfocal. LABORATORY: A pH of 7.35, pCO2 of 42, PO2 is 96. White count 10, hemoglobin 10, hematocrit 32, and platelets are 142. Sodium 144, potassium 3.6, chloride 112, CO2 of 26, BUN is 21, and creatinine is 1.1. IMAGING: Chest x-ray is as per the HPI. Essentially, bilateral lower lobe infiltrates with scattered fibrosis. I did review his CT scan from October of 2016. He has very severe emphysema. He actually has scattered spiculated nodules that probably need to be followed. He has bronchiectasis in the bases as well as some chronic appearing fibrosis. Again, the CT was from August 2016 not today. IMPRESSION: 1. End-stage chronic obstructive pulmonary disease. 2. Bilateral lower lobe pneumonia. 3. Probable aspiration. 4. Multiple spiculated lung nodules from August of 2016. 5. Chronic hypoxemia. 6. History of prostate cancer. 7. Dementia. 8. Anxiety. 9. Gout. ADMIT: 10/07/2016 RM/LOC: 414 [facility] MR#: [id number] [facility] [address] [place], [place] [address] RAMIRO DOMINGUEZ [address] [place] [address] Consultation SEX: M AGE: 81 : 1935 PLAN/RECOMMENDATIONS: At this point, continue antibiotics including Zosyn and Levaquin. Continue steroids. He is on Solu-Medrol. Continue DuoNeb, Brovana, and Pulmicort. He may benefit from therapeutic bronchoscopy since he is not able to clear secretions and it is obviously quite uncomfortable for him. I discussed that with him today. He is not interested at the present time. So, we decided we would readdress the issue in the morning. Those pulmonary nodules from August need to be followed, although I am not sure he would be a candidate for any type of treatment. I see [facility] has seen him and in my opinion, hospice would be a reasonable option as I believe his life expectancy is limited and could potentially maximize his quality of life. Edgardo Cleveland MD/ doug JOB #: [id number] CC: Edgardo Mendoza, Attending Physician Edgardo Mendoza, Family Physician Colin Steele MD
--- NOTE | 2016-10-13 10:31 | ER ---
ADMIT: 10/07/2016 RM/LOC: 414 [facility] MR#: [id number] [address] [address] [place] [facility] [address] [place] [address] Emergency Room Report SEX: M AGE: 81 : 1935 DATE: 10/07/2016 ADDENDUM: This 81-year-old white male with significant COPD exacerbation. Coming in because he has had fever, short of breath, difficulty breathing. He has recurrent bouts. He had also been admitted about a month or so ago for sepsis. At this time, he is septic based on his blood pressure which has a MAP lower than 65 and that was consistent. Chest x-ray also shows right lower lobe infiltrate. White count 10.4. Chemistry essentially negative. Creatinine 1.3. His lactate is 1.9. Blood gas on 4 L; pH 7.4, pCO2 of 42, PO2 of 67. EKG nothing acute at this time. Admitted for pneumonia, COPD exacerbation, sepsis, secondary pneumonia, hypoxia, and fever. I spoke with Dr. Mendoza, he will need to admit him as a city call. CONDITION ON DISCHARGE: Critical, but stable at this time. Joe Mcbride MD/ doug JOB #: [id number] CC: Edgardo Mendoza MD, Attending Physician Edgardo Mendoza MD, Family Physician
[2016-10-15] MEDS ORDERED: LEVAQUIN DPS500 MG PO (18:53)
[2016-10-15] MEDS ORDERED: ARICEPT DPS5 MG PO (18:53)
[2016-10-15] MEDS ORDERED: FLOMAX DPS0.4 MG PO (18:53)
[2016-10-15] MEDS ORDERED: SENOKOT DPS8.6 MG PO (18:54)
[2016-10-15] MEDS ORDERED: PHOS NAK PO (18:54)
[2016-10-15] MEDS ORDERED: MUCINEX600 MG PO (18:54)
[2016-10-15] MEDS ORDERED: THEO-24300 MG PO (18:54)
[2016-10-15] MEDS ORDERED: XANAX DPS0.5 MG PO (18:54)
[2016-10-15] MEDS ORDERED: ZYLOPRIM-DPS300 MG PO (18:55)
[2016-10-15] MEDS ORDERED: ZOLOFT DPS50 MG PO (18:55)
[2016-10-15] MEDS ORDERED: BROVANA15 MCG/2 M IH (18:55)
[2016-10-15] MEDS ORDERED: DUONEB DPS3 ML IH (18:55)
[2016-10-15] MEDS ORDERED: PULMICORT0.5 MG/2 M IH (18:56)
[2016-10-15] MEDS ORDERED: SPIRIVA18 MCG IH (18:56)
[2016-10-15] MEDS ORDERED: TEARS NATURAL D15 ML OU (18:56)
[2016-10-15] MEDS ORDERED: NORMAL SALINE FL5 ML IV (18:57)
[2016-10-15] MEDS ORDERED: ROXANOL 20MG20 MG/ML PO (18:58)
[2016-10-15] MEDS ORDERED: SENOKOT S1 TAB PO (19:13)
[2016-10-15] MEDS ORDERED: ZOFRAN4 MG PO (19:14)
[2016-10-15] MEDS ORDERED: TYLENOL DPS325 MG PO (19:14)
[2016-10-15] MEDS ORDERED: DULCOLAX-DPS10 MG PR (19:16)
[2016-10-15] MEDS ORDERED: PROVENTIL2.5 MG/3 M IH (19:16)
[2016-10-15] MEDS ORDERED: TYLENOL-DPS650 MG PR (19:17)
[2016-10-15] MEDS ORDERED: ISOPTO CARPINE SL (19:18)
[2016-10-15] MEDS ORDERED: LORAZEPAM I2 MG/1 ML SL (19:19)
[2016-10-15] MEDS ORDERED: ZOFRAN4 M1 PO (19:20)
--- NOTE | 2016-11-26 08:03 | DS ---
ADMIT: 10/07/2016 RM/LOC: 508 [facility] MR#: [id number] [address] [facility] [address] [place], [place] [id number] [facility] [address] [place] [address] General Discharge Summary SEX: M AGE: 81 : 1935 ADMISSION DATE: 10/07/2016 DISCHARGE DATE: 10/14/2016 CONSULTATIONS DURING THIS HOSPITALIZATION: 1. Pulmonology with Dr. Edgardo Cleveland. 2. Supportive Care with Ermelinda Bailey APRN. PRIMARY DIAGNOSES: 1. Bilateral pneumonia. 2. End-stage chronic obstructive pulmonary disease. 3. Chronic obstructive pulmonary disease exacerbation. 4. Chronic hypoxia. 5. High aspiration risk. 6. Generalized weakness. 7. Hypokalemia. 8. Hypotension. 9. Sepsis. HISTORY OF PRESENT ILLNESS: The patient is an 81-year-old white male, who is normally a patient of Dr. Colin Murillo at the [facility]. He had a 2 to 3 day history of increased cough, shortness of breath, and fever. He has a medical history significant for end-stage COPD with chronic hypoxia and use of home oxygen. He has had recurrent bouts of respiratory failure secondary to COPD and pneumonia. He has had numerous recent hospitalizations for pneumonia and COPD exacerbations. In addition to his chronic lung problems, he has a history of coronary artery disease, hypertension, hyperlipidemia, multifocal atrial tachycardia, and prostate cancer. He was last admitted to the hospital in August 2016 for pneumonia and COPD exacerbation. states that he has become generally weak and cachectic in recent months and has had increased shortness of breath, cough, and fever at home. Evaluation in the emergency room showed a right lower lobe pneumonia. The patient was admitted for COPD exacerbation and pneumonia. He was admitted to [facility] as a [facility] patient as his regular provider is Dr. Colin Murillo. LABORATORY AND X-RAY: Admission labs included an ABG with a pH of 7.444, pCO2 of 40.7, PO2 of 63.0. Admission white blood cell count 10.4, hemoglobin 13.8, platelet count 166, lactic acid normal at 1.9, procalcitonin normal at 0.10, INR less than 1.00. Chest x-ray showed right lower lobe pneumonia. Sodium 138, potassium 3.8, BUN 22, creatinine 1.3. Glucose 123, magnesium 1.8. AST 31, ALT 31, alkaline phosphatase 83, creatine kinase 94. MB 2.2. Relative index 2.3. Troponin I 0.017. Theophylline level was a little low at 6.4. EKG at the time of admission showed sinus tachycardia with PACs. Sputum culture showed normal antony. Blood culture showed no growth after 5 days incubation. Last set of labs was drawn on 10/10/2016 prior to making the patient comfort measures. Labs on this date included a sodium of 146, potassium 3.1, BUN 22, creatinine 1.2, glucose 162, alkaline phosphatase 62, AST 36, ALT 38, magnesium 2.0, procalcitonin 0.06, lactic acid 2.8. White blood cell count 9.7, hemoglobin 10.7, and platelet count 159. ADMIT: 10/07/2016 RM/LOC: 508 [facility] MR#: [id number] [address] [place] [id number] [address]ENT [address] [place] [address] General Discharge Summary SEX: M AGE: 81 : 1935 HOSPITAL COURSE: The patient was admitted to the hospital on 10/07/2016 with a COPD exacerbation and right lower lobe pneumonia. He was admitted to [facility] as a [facility] patient. He has had numerous recent hospitalizations for his end- stage COPD with exacerbation and several bouts of pneumonia. He was initially placed on the sepsis protocol and was started on DuoNeb breathing treatments, IV Solu-Medrol, and IV Zosyn. Oxygen was provided as well. PT and OT were consulted for strengthening. Social Work was consulted for possible placement. Sputum cultures were ordered, but did not grow out any bacteria. Supportive Care consult was ordered for code status and discussion of further care plans. Pulmonology consult was ordered as well as this patient has been admitted numerous occasions for COPD exacerbations and recurrent pneumonias. The patient became more short of breath. Over the first couple of days of hospitalization. Continued to require fair amounts of oxygen. A DNR/DNI status was placed in his chart on 10/09/2016 after family and patient discussed his condition with supportive care. After further discussion with the family and with the patient seeing no significant improvement with aggressive management, it was decided on 10/10/2016 to make patient comfort measures only. IV fluids, x-rays, PT, and labs were discontinued. Comfort measure medications were continued. The patient was followed closely for the next several days. And patient was comfortable and stable. On 10/14/2016, it was decided by the family to have the patient transferred from the hospital to [facility] with a [facility] providing hospice cares. DISCHARGE INSTRUCTIONS: The patient was discharged from the hospital on 10/14/2016 to [facility] with [facility] providing hospice cares. Edgardo Mendoza MD/ doug JOB #: [id number] CC: Edgardo Mendoza MD, Attending Physician Edgardo Mendoza MD, Family Physician Colin Steele MD
== END 2016-10-14 12:05 | disposition short-term general hospital (02) | DRG 871 ==
LOC: ER 07:40 → 4PCU 09:50 → 5MS 09:50
PROVIDERS: ADMIT Family Medicine
DX: A41.9 Sepsis, unspecified organism (principal); J18.9 Pneumonia, unspecified organism; J96.11 Chronic respiratory failure with hypoxia; Z51.5 Encounter for palliative care; E44.0 Moderate protein-calorie malnutrition; I95.9 Hypotension, unspecified; J44.0 Chronic obstructive pulmonary disease with (acute) lower respiratory infection; F03.90 Unspecified dementia, unspecified severity, without behavioral disturbance, psychotic disturbance, mood disturbance, and anxiety; R13.10 Dysphagia, unspecified; Z68.1 Body mass index [BMI] 19.9 or less, adult; J44.1 Chronic obstructive pulmonary disease with (acute) exacerbation; E87.6 Hypokalemia; I25.10 Atherosclerotic heart disease of native coronary artery without angina pectoris; R91.8 Other nonspecific abnormal finding of lung field; I10 Essential (primary) hypertension; K21.9 Gastro-esophageal reflux disease without esophagitis; M10.9 Gout, unspecified; E78.5 Hyperlipidemia, unspecified; N40.1 Benign prostatic hyperplasia with lower urinary tract symptoms; R33.8 Other retention of urine; F41.9 Anxiety disorder, unspecified; F32.9 Major depressive disorder, single episode, unspecified; Z85.46 Personal history of malignant neoplasm of prostate; Z79.82 Long term (current) use of aspirin; Z99.81 Dependence on supplemental oxygen; Z87.891 Personal history of nicotine dependence; Z66 Do not resuscitate